=== PATIENT | female | born 1980 | race Caucasian/White ===

== ENCOUNTER 2020-03-08 01:32 | Emergency (ER) | payer SELFPAY ==
[~2020-03-08] VITALS: Ht 162.6 cm; Wt 77.2 kg
[2020-03-08] MEDS ORDERED: ESCI20TA10 PO (01:41)
[2020-03-08] MEDS ORDERED: IUD (01:41)
[2020-03-08] MEDS ORDERED: MONT10TA11 PO (01:41)
[2020-03-08] MEDS ORDERED: CETI10CA PO (01:41)
[2020-03-08 01:51] VITALS: BP 123/88
[2020-03-08] MEDS ORDERED: LORazepam 1MG TABLET PO ONE ×2 (02:00→03:00)
[2020-03-08] MEDS ORDERED: LORazepam 1MG TABLET ONE ×2 (02:17→02:54)
--- NOTE | 2020-03-08 02:57 | NUR ---
PT MEDICATED PER SEP 19 RIGHTS VERIFIED, PT AMB TO RESTROOM STEADY GAIT NADN.
== END 2020-03-08 04:04 | disposition home or self-care (01) ==
LOC: ED 03:58
DX: F41.1 Generalized anxiety disorder (principal); F10.120 Alcohol abuse with intoxication, uncomplicated; R94.31 Abnormal electrocardiogram [ECG] [EKG]; R07.89 Other chest pain; F17.210 Nicotine dependence, cigarettes, uncomplicated; Y90.9 Presence of alcohol in blood, level not specified
CPT/HCPCS: 93005; 99283; 99406